=== PATIENT | female | born 1975 | race Caucasian/White ===

== ENCOUNTER 2023-07-08 13:20 | Outpatient (CLI) | payer BC | END 2023-07-08 13:21 | disposition home or self-care (01) | LOC: CSHULT 13:20 | PROVIDERS: ATTEND Internal Medicine | DX: R74.8 Abnormal levels of other serum enzymes (principal); E78.00 Pure hypercholesterolemia, unspecified; R16.0 Hepatomegaly, not elsewhere classified; K76.9 Liver disease, unspecified; N28.89 Other specified disorders of kidney and ureter | CPT/HCPCS: 76705 ==

== ENCOUNTER 2023-08-20 14:14 | Outpatient (CLI) | payer BC ==
[~2023-08-20 14:14] MED LIST: Iopamidol 300 61% 100 ML VIAL FS ONE
== END 2023-08-20 14:15 | disposition home or self-care (01) ==
LOC: CSHCT 14:14
PROVIDERS: ATTEND Physician Assistant Medical
DX: K74.3 Primary biliary cirrhosis (principal); K76.9 Liver disease, unspecified; R16.2 Hepatomegaly with splenomegaly, not elsewhere classified; R59.0 Localized enlarged lymph nodes; M47.817 Spondylosis without myelopathy or radiculopathy, lumbosacral region; K42.9 Umbilical hernia without obstruction or gangrene
CPT/HCPCS: 74170; Q9967